=== PATIENT | male | born 1930 | race African-American/Black ===

== ENCOUNTER 2018-05-15 14:02 | Inpatient (IN) | payer OTHER ==
[2018-05-15 14:35] LABS: ADD MAN DIFF? NO
[2018-05-15 14:40] LABS: WHITE BLOOD COUNT 9.2 10^3/ul (4.8-10.8)
[2018-05-15 14:40] LABS: ABNORMAL IP MESSAGE 1; BASOPHILS % 0.2 % (0.0-2.0); EOSINOPHILS % 0.1 % (0.0-7.0); HEMATOCRIT 25.9 % (42.0-52.0); HEMOGLOBIN 7.2 g/dl (14.0-18.0); LYMPHOCYTES # 1.1 10^3/ul (0.8-2.9); LYMPHOCYTES % 11.8 % (15.0-51.0); MEAN CORPUSCULAR HEMOGLOBIN 26.5 pg (29.0-33.0); MEAN CORPUSCULAR HGB CONC 27.8 g/dl (32.0-37.0); MEAN CORPUSCULAR VOLUME 95.2 fl (82.0-101.0); MONOCYTE # 0.7 10^3/ul (0.3-0.9); MONOCYTES % 7.7 % (0.0-11.0); NEUTROPHIL # 7.3 10^3/ul (1.6-7.5); NEUTROPHILS % 79.5 % (39.0-77.0); NUCLEATED RED BLOOD CELLS # 0.3 10^3/ul (0.0-0.0); NUCLEATED RED BLOOD CELLS% 3.3 /100WBC (0.0-0.0); PLATELET COUNT 114 10^3/UL (140-415); POSITIVE DIFF @See below; RED BLOOD COUNT 2.72 10^6/ul (4.70-6.10); RED CELL DISTRIBUTION WIDTH 17.4 % (11.5-14.5)
[2018-05-15] MEDS: NORepinephrine 8MG/250 ML (PMX 250 ML IV (14:45)
[2018-05-15 15:00] LABS: INR 1.44; PROTIME 17.6 Sec (11.9-14.9); PT RATIO 1.4
[2018-05-15] MEDS ORDERED: NORepinephrine 8MG/250 ML (PMX 250 ML IV (15:00)
[2018-05-15 15:01] LABS: PARTIAL THROMBOPLASTIN TIME 42.9 Sec (23.0-35.0)
[2018-05-15 15:04] LABS: ALANINE AMINOTRANSFERASE 30 IU/L (13-69); ALBUMIN 3.2 g/dl (3.3-4.9); ALBUMIN/GLOBULIN RATIO 0.76; ALKALINE PHOSPHATASE 137 IU/L (42-121); ANION GAP 11 (5-13); ASPARTATE AMINO TRANSFERASE 78 IU/L (15-46); BILIRUBIN,INDIRECT 0.2 mg/dl (0-1.1); BILIRUBIN,TOTAL 0.2 mg/dl (0.2-1.3); BLOOD UREA NITROGEN 84 mg/dl (7-20); CALCIUM 9.5 mg/dl (8.4-10.2); CARBON DIOXIDE 32 mmol/L (21-31); CHLORIDE 102 mmol/L (97-110); CREATININE 1.46 mg/dl (0.61-1.24); GLUCOSE 81 mg/dl (70-220); POTASSIUM 4.8 mmol/L (3.5-5.1); SODIUM 145 mmol/L (135-144); TOTAL PROTEIN 7.4 g/dl (6.1-8.1)
[2018-05-15 15:18] LABS: TROPONIN-I 0.251 ng/ml (0.000-0.120)
[2018-05-15 15:18] LABS: LACTIC ACID 6.6 mmol/L (0.5-2.0)
[2018-05-15 15:40] LABS: AADO2 Arterial 584.4 mmHg (7.0-24.0); Allen Test ACCEPTAB; Arterial Base Excess 4.5 mmol/L (-3.0-3); Arterial Blood Gas Oxygen Sat 91.8 mmHG (95.0-100.0); Arterial COHb 0.5 % (0.0-3.0); Arterial HCO3 31.1 mmol/L (22.0-26.0); Arterial MetHb 0.4 % (0.0-1.5); MODE VENT - AC; Site Left Radial
[2018-05-15] MEDS: EPINEPHrine 0.1 MG/ML SYG IV (16:00)
[2018-05-15 16:30] LABS: ADD UMIC YES; UR ASCORBIC ACID 40 mg/dL (NEGATIVE); UR BACTERIA FEW /HPF (NONE SEEN); UR BILIRUBIN (Dip) NEGATIVE (NEGATIVE); UR BLOOD (Dip) NEGATIVE (NEGATIVE); UR BUDDING YEAST MANY /HPF (NONE SEEN); UR CLARITY SLIGHTLY CLOUDY (CLEAR); UR COLOR AMBER (YELLOW); UR GLUCOSE (Dip) NEGATIVE (NEGATIVE); UR KETONES (Dip) NEGATIVE (NEGATIVE); UR LEUKOCYTE ESTERASE (Dip) 1+ Leu/ul (NEGATIVE); UR MUCUS FEW /HPF (NONE SEEN); UR NITRITE (Dip) NEGATIVE (NEGATIVE); UR RBC 9 /HPF (0-5); UR SPECIFIC GRAVITY (Dip) 1.014 (1.003-1.030); UR SQUAMOUS EPITHELIAL CELL FEW /HPF (FEW); UR TOTAL PROTEIN (Dip) 1+ mg/dl (NEGATIVE); UR UROBILINOGEN (Dip) 1+ mg/dL (NEGATIVE); UR WBC 14 /HPF (0-5)
[2018-05-15] MEDS: PIPER-TAZO 2.25 GM (PMX) 50 ML IVPB (16:37)
[2018-05-15 16:59] LABS: LACTIC ACID 3.6 mmol/L (0.5-2.0)
[2018-05-15] MEDS: VANCOMYCIN 1 GM (PMX) 250 ML IVPB (17:35)
[2018-05-15] MEDS ORDERED: ACETAMINOPHEN 325 MG TAB PO (18:30)
[2018-05-15] MEDS ORDERED: ALBUTEROL/IPRATROPIUM (NEB) 3 ML AMP HHN (18:30)
[2018-05-15] MEDS ORDERED: NITROGLYCERIN (SL) 0.4 MG TAB SL (18:30)
[2018-05-15] MEDS ORDERED: LEVALBUTEROL (NEB) 0.63 MG/3 ML AMP INH (18:30)
[2018-05-15] MEDS ORDERED: morphine 2 MG INJ IV (18:30)
[2018-05-15] MEDS ORDERED: NACL 0.9% 3 ML SYG IV (18:30)
[2018-05-15] MEDS ORDERED: VANCOMYCIN IV PER PHARMACY XX (18:30)
[2018-05-15] MEDS ORDERED: DOCUSATE SODIUM 100 MG CAP PO (18:30)
[2018-05-15] MEDS ORDERED: hydrALAzine 20 MG INJ IV (18:30)
[2018-05-15] MEDS ORDERED: ONDANSETRON 4 MG INJ IV (18:30)
[2018-05-15] MEDS ORDERED: HYDROCODONE/APAP (5/325) TAB PO (18:30)
[2018-05-15] MEDS ORDERED: MAGNESIUM HYDROXIDE 30ML CUP PO (18:30)
[2018-05-15] MEDS ORDERED: LORAZEPAM 2 MG INJ IV (18:30)
[2018-05-15] MEDS: ASPIRIN 81 MG TAB GTB (19:29)
[2018-05-15 19:30] LABS: FREE T4 (FREE THYROXINE) 1.19 ng/dl (0.85-1.93)
[2018-05-15 19:38] LABS: HEMATOCRIT 26.7 % (42.0-52.0); HEMOGLOBIN 7.6 g/dl (14.0-18.0)
[2018-05-15 20:07] LABS: LACTIC ACID 2.5 mmol/L (0.5-2.0)
[2018-05-15] MEDS: SOD CHLORIDE 0.45% 1,000 ML IV (20:15)
[2018-05-15 20:26] LABS: HEMOGLOBIN A1C 5.6 % (0-5.9)
[2018-05-15] MEDS: NORepinephrine 32 MG in DEXTROSE 5% 218 ML IV (21:19)
[2018-05-15] MEDS: MAGNESIUM HYDROXIDE 30ML CUP GTB (21:54)
[2018-05-15] MEDS: FAMOTIDINE 20 MG INJ IV (21:54)
[2018-05-15] MEDS: VANCOMYCIN 750 MG (PMX) 250 ML IVPB (23:00)
[2018-05-16] MEDS: PIPER-TAZO 3.375 GM IV (PMX) 100 ML IVPB ×6 (01:48→23:34)
[2018-05-16 03:12] LABS: HEMATOCRIT 26.3 % (42.0-52.0); HEMOGLOBIN 7.6 g/dl (14.0-18.0)
[2018-05-16 03:27] LABS: LACTIC ACID 1.7 mmol/L (0.5-2.0)
[2018-05-16 05:51] LABS: WHITE BLOOD COUNT 14.4 10^3/ul (4.8-10.8)
[2018-05-16 05:51] LABS: ABNORMAL IP MESSAGE 1; HEMATOCRIT 26.4 % (42.0-52.0); HEMOGLOBIN 7.7 g/dl (14.0-18.0); MEAN CORPUSCULAR HEMOGLOBIN 26.8 pg (29.0-33.0); MEAN CORPUSCULAR HGB CONC 29.2 g/dl (32.0-37.0); MEAN PLATELET VOLUME 13.4 fl (7.4-10.4); NUCLEATED RED BLOOD CELLS% 0.5 /100WBC (0.0-0.0); PLATELET COUNT 124 10^3/UL (140-415); POSITIVE DIFF @See below; RED BLOOD COUNT 2.87 10^6/ul (4.70-6.10); RED CELL DISTRIBUTION WIDTH 16.9 % (11.5-14.5)
[2018-05-16 05:56] LABS: ADD MAN DIFF? YES
[2018-05-16 06:05] LABS: HEMOGLOBIN A1C 5.5 % (0-5.9)
[2018-05-16 06:18] LABS: CHOL/HDL RATIO 1.6 RATIO; LDL CHOLESTEROL,CALCULATED 24 mg/dl
[2018-05-16 06:39] LABS: ANION GAP 7 (5-13); BLOOD UREA NITROGEN 97 mg/dl (7-20); CALCIUM 8.9 mg/dl (8.4-10.2); CARBON DIOXIDE 33 mmol/L (21-31); CHLORIDE 103 mmol/L (97-110); CREATININE 1.74 mg/dl (0.61-1.24); GLUCOSE 110 mg/dl (70-220); MAGNESIUM 2.8 mg/dl (1.7-2.5); PHOSPHORUS 3.9 mg/dl (2.5-4.9); POTASSIUM 4.7 mmol/L (3.5-5.1); SODIUM 143 mmol/L (135-144)
[2018-05-16 06:42] LABS: CHOLESTEROL 81 mg/dl (100-200)
[2018-05-16 06:42] LABS: HDL CHOLESTEROL 49 mg/dl (31-75); TRIGLYCERIDES 42 mg/dl (0-149)
[2018-05-16 07:14] LABS: ANISOCYTOSIS 1+ (0-0); BAND NEUTROPHILS % (M) 7 % (0-4); ERYTHROBLAST% (NRBC) (M) 3 % (0-0); HYPOCHROMASIA 1+ (0-0); LYMPHOCYTES #M 4.7 10^3/ul (0.8-2.9); LYMPHOCYTES % (M) 33 % (15-51); MONOCYTE #M 1.7 10^3/ul (0.3-0.9); MONOCYTES % (M) 12 % (0-11); MYELOCYTES #M 0.1 10^3/ul (0.0-0.0); MYELOCYTES % (M) 1 % (0-0); OVALOCYTES 1+ (0-0); PLATELET ESTIMATE DECREASED; POLYCHROMASIA 3+ (0-0); SEG NEUT #M 6.9 10^3/ul (1.6-7.5); SEGMENTED NEUTROPHILS (M) % 47 % (39-77); SMUDGE%M 10 % (0-0); STOMATOCYTES 1+ (0-0)
[2018-05-16] MEDS: SOD CHLORIDE 0.45% 1,000 ML IV ×2 (08:10→10:15)
[2018-05-16] MEDS: ASPIRIN 81 MG TAB GTB ×2 (09:30→10:38)
[2018-05-16 09:45] LABS: HEMATOCRIT 26.1 % (42.0-52.0); HEMOGLOBIN 7.7 g/dl (14.0-18.0)
[2018-05-16 10:00] LABS: LACTIC ACID 1.4 mmol/L (0.5-2.0)
[2018-05-16] MEDS: SOD CHLORIDE 0.9% 250 ML IV* (10:36)
[2018-05-16] MEDS ORDERED: PENDING SANTYL ORDER FOR WOUND CARE XX (12:00)
[2018-05-16 12:05] LABS: SODIUM,URINE RANDOM 26 mmol/L (30-90)
[2018-05-16 12:06] LABS: CREATININE,URINE RANDOM 38.35 mg/dl (20-370); PROTEIN/CREAT RATIO 1.64 RATIO
[2018-05-16 12:50] LABS: IMMEDIATE SPIN CROSSMATCH 1 2
[2018-05-16 14:35] LABS: LACTIC ACID 1.3 mmol/L (0.5-2.0)
[2018-05-16] MEDS: EPOETIN 10000 UNITS/1 ML INJ (ESRD) SC (16:17)
[2018-05-16] MEDS: MAGNESIUM HYDROXIDE 30ML CUP GTB (17:24)
[2018-05-16] MEDS ORDERED: VANCOMYCIN HCL 1.25 GM in SOD CHLORIDE 0.9% 250 ML IVPB (18:00)
[2018-05-16] MEDS: VANCOMYCIN HCL 1.25 GM in SOD CHLORIDE 0.9% 250 ML IVPB (18:10)
[2018-05-16] MEDS: FAMOTIDINE 20 MG INJ IV (21:21)
[2018-05-16] MEDS: ATORVASTATIN 40 MG TAB GTB (21:21)
[2018-05-16 21:27] LABS: HEMOGLOBIN 8.5 g/dl (14.0-18.0)
[2018-05-17] MEDS: PIPER-TAZO 3.375 GM IV (PMX) 100 ML IVPB ×3 (05:31→17:28)
[2018-05-17 05:32] LABS: ADD MAN DIFF? NO
[2018-05-17 05:39] LABS: BASOPHILS % 0.4 % (0.0-2.0); EOSINOPHILS # 0.3 10^3/ul (0.0-0.5); EOSINOPHILS % 4.4 % (0.0-7.0); HEMATOCRIT 28.2 % (42.0-52.0); HEMOGLOBIN 8.5 g/dl (14.0-18.0); LYMPHOCYTES # 1.1 10^3/ul (0.8-2.9); MEAN CORPUSCULAR HEMOGLOBIN 26.9 pg (29.0-33.0); MEAN CORPUSCULAR HGB CONC 30.1 g/dl (32.0-37.0); MEAN CORPUSCULAR VOLUME 89.2 fl (82.0-101.0); MONOCYTE # 0.9 10^3/ul (0.3-0.9); MONOCYTES % 11.6 % (0.0-11.0); NEUTROPHIL # 5.3 10^3/ul (1.6-7.5); NEUTROPHILS % 68.8 % (39.0-77.0); NUCLEATED RED BLOOD CELLS% 0.4 /100WBC (0.0-0.0); PLATELET COUNT 102 10^3/UL (140-415); RED BLOOD COUNT 3.16 10^6/ul (4.70-6.10); RED CELL DISTRIBUTION WIDTH 16.6 % (11.5-14.5)
[2018-05-17 05:39] LABS: WHITE BLOOD COUNT 7.8 10^3/ul (4.8-10.8)
[2018-05-17 06:08] LABS: CREATINE KINASE 36 IU/L (23-200)
[2018-05-17 06:14] LABS: ALANINE AMINOTRANSFERASE 59 IU/L (13-69); ALBUMIN/GLOBULIN RATIO 0.71; ALKALINE PHOSPHATASE 133 IU/L (42-121); ANION GAP 10 (5-13); ASPARTATE AMINO TRANSFERASE 140 IU/L (15-46); BILIRUBIN,INDIRECT 0.3 mg/dl (0-1.1); BILIRUBIN,TOTAL 0.3 mg/dl (0.2-1.3); BLOOD UREA NITROGEN 90 mg/dl (7-20); CALCIUM 8.6 mg/dl (8.4-10.2); CARBON DIOXIDE 33 mmol/L (21-31); CHLORIDE 103 mmol/L (97-110); CHOL/HDL RATIO 2.2 RATIO; CHOLESTEROL 91 mg/dl (100-200); CREATININE 1.86 mg/dl (0.61-1.24); GLUCOSE 72 mg/dl (70-220); HDL CHOLESTEROL 40 mg/dl (31-75); LDL CHOLESTEROL,CALCULATED 38 mg/dl; POTASSIUM 4.1 mmol/L (3.5-5.1); SODIUM 146 mmol/L (135-144); TOTAL PROTEIN 7.2 g/dl (6.1-8.1); TRIGLYCERIDES 64 mg/dl (0-149)
[2018-05-17 06:16] LABS: B-TYPE NATRIURETIC PEPTIDE 21800 PG/ML (0-450); IRON 29 ug/dl (35-150)
[2018-05-17 06:20] LABS: CK INDEX 9.1
[2018-05-17 06:25] LABS: % IRON SATURATION 11 % SAT (22-52); TOTAL IRON BINDING CAPACITY 255 ug/dl (241-421)
[2018-05-17 06:26] LABS: CK-MB 3.26 ng/ml (0.0-2.4)
[2018-05-17] MEDS ORDERED: HEPARIN 1000 UNITS/ML 10 ML INJ IV ×2 (08:00)
[2018-05-17] MEDS: SOD CHLORIDE 0.45% 1,000 ML IV (08:17)
[2018-05-17] MEDS: ASPIRIN 81 MG TAB GTB (08:17)
[2018-05-17] MEDS: HEPARIN 1000 UNITS/ML 10 ML INJ IV (08:25)
[2018-05-17] MEDS: HEPARIN 25000 UNITS/250 ML 250 ML IV (08:32)
[2018-05-17] MEDS: DEXTROSE 5% 1,000 ML IV (09:40)
[2018-05-17] MEDS: FLUCONAZOLE 200 MG (PMX) 100 ML IVPB (12:12)
[2018-05-17 15:30] LABS: PARTIAL THROMBOPLASTIN TIME > 180.0 Sec (23.0-35.0)
[2018-05-17 17:21] LABS: PARTIAL THROMBOPLASTIN TIME 165.1 Sec (23.0-35.0)
[2018-05-17] MEDS: MAGNESIUM HYDROXIDE 30ML CUP GTB (17:27)
[2018-05-17 19:38] LABS: PARTIAL THROMBOPLASTIN TIME 46.4 Sec (23.0-35.0)
[2018-05-17] MEDS: FAMOTIDINE 20 MG INJ IV (21:14)
[2018-05-17] MEDS: ATORVASTATIN 40 MG TAB GTB (21:14)
[2018-05-17] MEDS: NYSTATIN 30 GM POWDER BTL TOP (21:40)
[2018-05-18] MEDS: BALSAM PERU/CASTOR OIL 60 GM TUBE TOP ×2 (00:12→10:39)
[2018-05-18] MEDS: DEXTROSE 5% 1,000 ML IV ×2 (00:12→10:39)
[2018-05-18] MEDS: PIPER-TAZO 3.375 GM IV (PMX) 100 ML IVPB ×4 (00:15→17:35)
[2018-05-18 05:11] LABS: PARTIAL THROMBOPLASTIN TIME 101.8 Sec (23.0-35.0)
[2018-05-18] MEDS: VANCOMYCIN HCL 1.25 GM in SOD CHLORIDE 0.9% 250 ML IVPB (05:26)
[2018-05-18] MEDS: HEPARIN 25000 UNITS/250 ML 250 ML IV (05:38)
[2018-05-18 05:39] LABS: ADD MAN DIFF? NO
[2018-05-18 05:47] LABS: WHITE BLOOD COUNT 4.9 10^3/ul (4.8-10.8)
[2018-05-18 05:47] LABS: BASOPHILS % 0.2 % (0.0-2.0); EOSINOPHILS # 0.4 10^3/ul (0.0-0.5); EOSINOPHILS % 7.5 % (0.0-7.0); HEMATOCRIT 27.6 % (42.0-52.0); HEMOGLOBIN 8.1 g/dl (14.0-18.0); LYMPHOCYTES # 0.8 10^3/ul (0.8-2.9); MEAN CORPUSCULAR HEMOGLOBIN 26.6 pg (29.0-33.0); MEAN CORPUSCULAR HGB CONC 29.3 g/dl (32.0-37.0); MEAN CORPUSCULAR VOLUME 90.8 fl (82.0-101.0); MEAN PLATELET VOLUME 12.7 fl (7.4-10.4); MONOCYTE # 0.6 10^3/ul (0.3-0.9); MONOCYTES % 12.3 % (0.0-11.0); NEUTROPHIL # 3.1 10^3/ul (1.6-7.5); NEUTROPHILS % 63.6 % (39.0-77.0); PLATELET COUNT 110 10^3/UL (140-415); RED BLOOD COUNT 3.04 10^6/ul (4.70-6.10); RED CELL DISTRIBUTION WIDTH 16.8 % (11.5-14.5)
[2018-05-18 06:06] LABS: ALANINE AMINOTRANSFERASE 141 IU/L (13-69); ALBUMIN/GLOBULIN RATIO 0.73; ALKALINE PHOSPHATASE 125 IU/L (42-121); ANION GAP 10 (5-13); ASPARTATE AMINO TRANSFERASE 272 IU/L (15-46); BILIRUBIN,INDIRECT 0.2 mg/dl (0-1.1); BILIRUBIN,TOTAL 0.2 mg/dl (0.2-1.3); BLOOD UREA NITROGEN 79 mg/dl (7-20); CALCIUM 8.6 mg/dl (8.4-10.2); CARBON DIOXIDE 33 mmol/L (21-31); CHLORIDE 104 mmol/L (97-110); CREATININE 1.73 mg/dl (0.61-1.24); GLUCOSE 91 mg/dl (70-220); MAGNESIUM 3.2 mg/dl (1.7-2.5); POTASSIUM 3.9 mmol/L (3.5-5.1); SODIUM 147 mmol/L (135-144); TOTAL PROTEIN 7.1 g/dl (6.1-8.1)
[2018-05-18 06:07] LABS: INR 1.31; PROTIME 16.4 Sec (11.9-14.9); PT RATIO 1.3
[2018-05-18 06:12] LABS: B-TYPE NATRIURETIC PEPTIDE 22700 PG/ML (0-450)
[2018-05-18] MEDS: POTASSIUM CHLORIDE 100 ML IVPB (10:38)
[2018-05-18] MEDS: ASPIRIN 81 MG TAB GTB (10:38)
[2018-05-18] MEDS: FUROSEMIDE 40 MG INJ IV (10:39)
[2018-05-18] MEDS: NYSTATIN 30 GM POWDER BTL TOP (10:39)
[2018-05-18 12:16] LABS: PARTIAL THROMBOPLASTIN TIME 117.8 Sec (23.0-35.0)
[2018-05-18] MEDS: FLUCONAZOLE 200 MG (PMX) 100 ML IVPB (13:24)
[2018-05-18] MEDS: EPOETIN 10000 UNITS/1 ML INJ (ESRD) SC (17:35)
== END 2018-05-18 18:28 | disposition short-term general hospital (02) | DRG 871 ==
LOC: ICU 18:23 → E/R 14:02
PROC: 06HY33Z Insertion of Infusion Device into Lower Vein, Percutaneous Approach (ICD-10-PCS; principal; 2018-05-15)
PROC: 5A1945Z Respiratory Ventilation, 24-96 Consecutive Hours (ICD-10-PCS; 2018-05-15)
PROC: 30233N1 Transfusion of Nonautologous Red Blood Cells into Peripheral Vein, Percutaneous Approach (ICD-10-PCS; 2018-05-16)
DX: A41.9 Sepsis, unspecified organism (principal); R65.21 Severe sepsis with septic shock; I21.4 Non-ST elevation (NSTEMI) myocardial infarction; J18.9 Pneumonia, unspecified organism; J96.21 Acute and chronic respiratory failure with hypoxia; G93.40 Encephalopathy, unspecified; I13.0 Hypertensive heart and chronic kidney disease with heart failure and stage 1 through stage 4 chronic kidney disease, or unspecified chronic kidney disease; B37.49 Other urogenital candidiasis; I82.412 Acute embolism and thrombosis of left femoral vein; I82.432 Acute embolism and thrombosis of left popliteal vein; D69.6 Thrombocytopenia, unspecified; Z93.1 Gastrostomy status; N18.9 Chronic kidney disease, unspecified; D64.9 Anemia, unspecified; M10.9 Gout, unspecified; L89.152 Pressure ulcer of sacral region, stage 2; R13.10 Dysphagia, unspecified; I50.9 Heart failure, unspecified; Z93.0 Tracheostomy status; Z86.74 Personal history of sudden cardiac arrest; Z85.46 Personal history of malignant neoplasm of prostate; Z85.51 Personal history of malignant neoplasm of bladder
CPT/HCPCS: 36415; 36430; 36600; 70450; 71045; 74018; 76700; 76775; 76937; 80048; 80053; 80061; 81001; 81003; 82550; 82553; 82570; 82728; 82803; 83036; 83540; 83605; 83735; 83880; 84100; 84300; 84439; 84443; 84484; 85014; 85018; 85025; 85610; 85730; 86850; 86900; 86901; 86920; 87040; 87081; 87086; 92610; 93005; 93306; 93970; 94002; 94003; 96365; 96366; 96375; 99291-25